=== PATIENT | female | born 1990 | race Caucasian/White ===

== ENCOUNTER 2021-05-10 17:53 | Emergency (ER) | payer MEDICAID, SELFPAY ==
[~2021-05-10] VITALS: Ht 167.6 cm; Wt 91.6 kg
[~2021-05-10 17:53] MED LIST: CALCIUM; FERR-212 PO; PREN-556 PO
[2021-05-10 18:02] VITALS: BP 139/80
[2021-05-10 18:46] LABS: BASOPHILS % (AUTO) 0.2 % (0.0-2.0); EOSINOPHILS # (AUTO) 0.1 K/uL (0-0.4); EOSINOPHILS % (AUTO) 1.4 % (0.0-4.0); HEMATOCRIT 39.9 % (36-48); HEMOGLOBIN 13.1 g/dL (12.0-16.0); LYMPHOCYTES # (AUTO) 1.8 K/uL (2.5-16.5); LYMPHOCYTES % (AUTO) 21.2 % (20.5-51.1); MEAN CORPUSCULAR HEMOGLOBIN 30 pg (27-31); MEAN CORPUSCULAR HGB CONC 33 g/dL (33-37); MEAN CORPUSCULAR VOLUME 90.3 fL (80-94); MONOCYTES # (AUTO) 0.6 K/uL (0.8-1.0); NEUTROPHILS # (AUTO) 5.9 K/uL (1.8-7.7); NEUTROPHILS % (AUTO) 70.2 % (42.2-75.2); PLATELET COUNT (AUTO) 140 K/uL (140-450); RED BLOOD CELL COUNT(AUTO) 4.42 MIL/uL (4.20-5.40); RED CELL DISTRIBUTION WIDTH 15.4 % (11.6-13.7); WHITE BLOOD COUNT (AUTO) 8.4 K/uL (4.8-10.8)
[2021-05-10] MEDS: KETOROLAC 30 MG/ML VIAL IVP ONE (18:47)
--- NOTE | 2021-05-10 18:52 | NUR ---
30/F PRESENTS TO ED WITH C/O HEADACHE AND BILATERAL EAR PRESSURE SINCE LAST NIGHT. PATIENT STATES SHE RECENTLY GAVE TO HER SECOND CHILD ON 05/06/21 AND HAD A VAGINAL DELIVERY, STATING SHE FELT FINE AFTER BUT STARTED TO EXPERIENCE A CONSTANT HEADACHE SINCE LAST NIGHT. STATES PAIN IS 7/10 NONRADIATING, DENIES TAKING ANYTHING AT HOME FOR PAIN. PATIENT DENIES CP, SOB, FEVER, CHILLS, DIZZINESS OR BLURRED VISION. PATIENT ALERT AND ORIENTED X4, ANSWERING QUESTIONS APPROPRIATELY, SPEAKING IN FULL CLEAR SENTENCES.
[2021-05-10 19:03] LABS: POTASSIUM 4.1 mmol/L (3.5-5.1)
[2021-05-10 19:04] LABS: ANION GAP 11.9 (8-16); CARBON DIOXIDE 26.2 mmol/L (21-32); CREATININE 0.7 mg/dL (0.6-1.3)
[2021-05-10 19:06] LABS: ALBUMIN 2.7 g/dL (3.4-5.0); TOTAL BILIRUBIN 0.2 mg/dL (0.0-1.0)
[2021-05-10 19:07] LABS: MAGNESIUM 1.8 mg/dL (1.8-2.4); PHOSPHORUS 4.4 mg/dL (2.5-4.9)
--- NOTE | 2021-05-10 19:09 | NUR ---
Pt report given to CALVIN MAYO. Transfer of care at this time.
--- NOTE | 2021-05-10 19:13 | NUR ---
RECEIBED PT IN BED 9. CONTINUES WITH C/O H/A. IS AWAKE AND ALERT, RESPIRATIONS REGULAR AND UNLABORED
[2021-05-10] MEDS ORDERED: ACET-10509 PO (19:18)
[2021-05-10 19:25] VITALS: BP 104/72
== END 2021-05-10 19:25 | disposition home or self-care (01) ==
LOC: MED 17:53
DX: R51.9 Headache, unspecified (principal); H92.03 Otalgia, bilateral; Z79.899 Other long term (current) drug therapy
CPT/HCPCS: 36415; 80053; 83735; 84100; 85025; 96374; 99283; J1885